=== PATIENT | female | born 1975 | race Caucasian/White ===

== ENCOUNTER → 2017-01-30 | Outpatient (CLI) | payer MEDICARE, OTHER ==
[~2017-01-30] VITALS: Ht 149.9 cm; Wt 88.9 kg
== END ==
LOC: OPSV 13:56
DX: G35 Multiple sclerosis (principal)
CPT/HCPCS: 96365; J2930; J7070

== ENCOUNTER → 2017-01-31 | Outpatient (CLI) | payer MEDICARE, OTHER ==
[~2017-01-31] VITALS: Ht 149.9 cm; Wt 88.9 kg
== END ==
LOC: OPSV 07:56
DX: G35 Multiple sclerosis (principal)
CPT/HCPCS: 96365; J2930; J7070

== ENCOUNTER → 2017-02-01 | Outpatient (CLI) | payer MEDICARE, OTHER ==
[~2017-02-01] VITALS: Ht 149.9 cm; Wt 88.9 kg
== END ==
LOC: OPSV 08:30
DX: G35 Multiple sclerosis (principal)
CPT/HCPCS: 96365; J2930; J7070

== ENCOUNTER 2021-04-30 20:42 | Emergency (ER) | payer MEDICARE, OTHER ==
[~2021-04-30 20:42] MED LIST: CYCLOBENZAPRINE10 MG PO
[2021-04-30 22:50] LABS: HEMOGLOBIN 15.4 gm/dl (12.3-15.3); RED BLOOD COUNT 5.41 M/UL (4.00-5.10); WHITE BLOOD COUNT 10.1 K/UL (4.5-11.0)
[2021-04-30 23:38] LABS: BUN/CREATININE RATIO 12 (0-10)
== END 2021-05-01 03:00 | disposition home or self-care (01) ==
LOC: ER1 20:42
PROVIDERS: Physician Assistant
DX: R06.02 Shortness of breath (principal); R07.89 Other chest pain; E11.9 Type 2 diabetes mellitus without complications; Z86.711 Personal history of pulmonary embolism; Z90.49 Acquired absence of other specified parts of digestive tract; Z88.1 Allergy status to other antibiotic agents; Z79.01 Long term (current) use of anticoagulants
CPT/HCPCS: 71045; 80053; 82550; 82553; 83874; 84484; 85025; 85379; 93005; 99285

== ENCOUNTER → 2021-06-24 | Outpatient (CLI) | payer MEDICARE, OTHER ==
[~2021-06-24] VITALS: Ht 149.9 cm; Wt 69.9 kg
== END ==
LOC: OPSV 13:00
DX: G35 Multiple sclerosis (principal)
CPT/HCPCS: 96365; J2930; J7030

== ENCOUNTER → 2021-06-26 | Outpatient (CLI) | payer MEDICARE, OTHER ==
[~2021-06-26] VITALS: Ht 149.9 cm; Wt 69.9 kg
== END ==
LOC: OPSV 13:44
DX: G35 Multiple sclerosis (principal)
CPT/HCPCS: 96365; J2930; J7030

== ENCOUNTER → 2021-06-27 | Outpatient (CLI) | payer MEDICARE, OTHER ==
[~2021-06-27] VITALS: Ht 149.9 cm; Wt 69.9 kg
[~2021-06-27] MED LIST changes: +AMANTADINE100 M1 PO; +ASPIRIN EC81 MG PO; +AUGMENTIN 875-1 EACH PO; +BACITRACIN TOP; +BACTRIM DS TAB1 EACH PO; +DALFAMPRIDINE E10 MG PO; +ELIQUIS 5 MG TAB5 MG PO; +FARXIGA10 MG PO; +FERROUS SULFAT325 MG PO; +LANTUS SOL100 UNIT/1 SQ; +LIPITOR TAB 2020 MG PO; +MULTI-VITAMIN1 EACH PO; +NUEDEXTA 20-101 EACH PO; +NYSTOP60 GM TOP; +OXYCODON-ACETA1 EACH PO; +REXULTI1 MG PO; +VITAMIN C500 M4 PO
== END ==
LOC: OPSV 06-25 14:00
DX: G35 Multiple sclerosis (principal)
CPT/HCPCS: 96365; J2930; J7070

== ENCOUNTER 2021-06-30 16:35 | Inpatient (IN) | payer MEDICARE, OTHER ==
[~2021-06-30] VITALS: Ht 149.9 cm; Wt 70.3 kg
[~2021-06-30 16:35] MED LIST changes: -AMANTADINE100 M1 PO; -ASPIRIN EC81 MG PO; -AUGMENTIN 875-1 EACH PO; -BACITRACIN TOP; -BACTRIM DS TAB1 EACH PO; -DALFAMPRIDINE E10 MG PO; -ELIQUIS 5 MG TAB5 MG PO; -FARXIGA10 MG PO; -FERROUS SULFAT325 MG PO; -LANTUS SOL100 UNIT/1 SQ; -LIPITOR TAB 2020 MG PO; -MULTI-VITAMIN1 EACH PO; -NUEDEXTA 20-101 EACH PO; -NYSTOP60 GM TOP; -OXYCODON-ACETA1 EACH PO; -REXULTI1 MG PO; -VITAMIN C500 M4 PO
[2021-06-30 17:02] LABS: HEMOGLOBIN 17.3 gm/dl (12.3-15.3); RED BLOOD COUNT 5.69 M/UL (4.00-5.10); WHITE BLOOD COUNT 14.1 K/UL (4.5-11.0)
[2021-06-30 17:35] LABS: BUN/CREATININE RATIO 28 (0-10)
[2021-06-30 21:08] LABS: BUN/CREATININE RATIO 26 (0-10)
[2021-06-30 23:52] LABS: BUN/CREATININE RATIO 23 (0-10)
[2021-06-30] MEDS ORDERED: AMANTADINE100 M1 PO (23:59)
[2021-06-30] MEDS ORDERED: LIPITOR TAB 2020 MG PO (23:59)
[2021-07-01] MEDS ORDERED: DALFAMPRIDINE E10 MG PO (00:02)
[2021-07-01] MEDS ORDERED: FARXIGA10 MG PO (00:03)
[2021-07-01] MEDS ORDERED: ELIQUIS 5 MG TAB5 MG PO (00:03)
[2021-07-01] MEDS ORDERED: LANTUS SOL100 UNIT/1 SQ (00:05)
[2021-07-01] MEDS ORDERED: NUEDEXTA 20-101 EACH PO (00:06)
[2021-07-01] MEDS ORDERED: VITAMIN C500 M4 PO (00:06)
[2021-07-01] MEDS ORDERED: REXULTI1 MG PO (00:06)
[2021-07-01] MEDS ORDERED: MULTI-VITAMIN1 EACH PO (00:07)
[2021-07-01] MEDS ORDERED: FERROUS SULFAT325 MG PO (00:07)
[2021-07-01 03:43] LABS: WHITE BLOOD COUNT 12.2 K/UL (4.5-11.0)
[2021-07-01 03:53] LABS: HEMOGLOBIN 14.6 gm/dl (12.3-15.3); RED BLOOD COUNT 4.91 M/UL (4.00-5.10)
[2021-07-01 04:16] LABS: BUN/CREATININE RATIO 19 (0-10)
[2021-07-01 07:55] LABS: BUN/CREATININE RATIO 19 (0-10)
[2021-07-02 07:37] LABS: HEMOGLOBIN 14.5 gm/dl (12.3-15.3); RED BLOOD COUNT 4.88 M/UL (4.00-5.10); WHITE BLOOD COUNT 6.6 K/UL (4.5-11.0)
[2021-07-02 08:00] LABS: BUN/CREATININE RATIO 19 (0-10)
[2021-07-03 06:38] LABS: HEMOGLOBIN 13.9 gm/dl (12.3-15.3); RED BLOOD COUNT 4.58 M/UL (4.00-5.10)
[2021-07-03 06:40] LABS: WHITE BLOOD COUNT 12.1 K/UL (4.5-11.0)
[2021-07-03 07:06] LABS: BUN/CREATININE RATIO 22 (0-10)
[2021-07-04 06:05] LABS: HEMOGLOBIN 12.8 gm/dl (12.3-15.3); RED BLOOD COUNT 4.27 M/UL (4.00-5.10)
[2021-07-04 06:10] LABS: CHLAMYDIA BY NAA Negative (Negative); GONOCOCCUS BY NAA Negative (Negative); TRICH VAG BY NAA Negative (Negative)
[2021-07-04 06:14] LABS: WHITE BLOOD COUNT 8.7 K/UL (4.5-11.0)
[2021-07-04 06:27] LABS: BUN/CREATININE RATIO 23 (0-10)
[2021-07-05 05:19] LABS: HEMOGLOBIN 12.5 gm/dl (12.3-15.3); RED BLOOD COUNT 4.26 M/UL (4.00-5.10); WHITE BLOOD COUNT 7.4 K/UL (4.5-11.0)
[2021-07-05 05:54] LABS: BUN/CREATININE RATIO 13 (0-10)
[2021-07-05] MEDS ORDERED: BACTRIM DS TAB1 EACH PO (13:03)
[2021-07-05] MEDS ORDERED: AUGMENTIN 875-1 EACH PO (13:03)
[2021-07-05] MEDS ORDERED: OXYCODON-ACETA1 EACH PO (13:05)
[2021-07-05] MEDS ORDERED: NYSTOP60 GM TOP (13:13)
[2021-07-05] MEDS ORDERED: BACITRACIN TOP (13:13)
[2021-07-05 18:16] LABS: BUN/CREATININE RATIO 11 (0-10)
[2021-07-06 05:37] LABS: RED BLOOD COUNT 4.05 M/UL (4.00-5.10); WHITE BLOOD COUNT 6.2 K/UL (4.5-11.0)
[2021-07-06 06:18] LABS: BUN/CREATININE RATIO 19 (0-10)
[2021-07-07 07:06] LABS: BUN/CREATININE RATIO 18 (0-10)
[2021-07-08 07:08] LABS: BUN/CREATININE RATIO 15 (0-10)
[2021-07-08] MEDS ORDERED: ASPIRIN EC81 MG PO (08:59)
== END 2021-07-08 11:41 | disposition home health service (06) | DRG 872 ==
LOC: ER1 16:35 → CDU 21:11 → PROG CARE 21:11 → MED SURG 4 21:11 → PROG CARE 22:55 → MED SURG 4 07-01 14:00
PROVIDERS: Emergency Medicine; Internal Medicine; ADMIT Internal Medicine
PROC: B24BZZZ Ultrasonography of Heart with Aorta (ICD-10-PCS; principal; 2021-07-07)
DX: A41.9 Sepsis, unspecified organism (principal); N12 Tubulo-interstitial nephritis, not specified as acute or chronic; E87.2 Acidosis; G35 Multiple sclerosis; E11.9 Type 2 diabetes mellitus without complications; R07.89 Other chest pain; E66.9 Obesity, unspecified; Z20.822 Contact with and (suspected) exposure to COVID-19; R19.7 Diarrhea, unspecified; E11.65 Type 2 diabetes mellitus with hyperglycemia; R94.31 Abnormal electrocardiogram [ECG] [EKG]; E55.9 Vitamin D deficiency, unspecified; E88.89 Other specified metabolic disorders; E86.1 Hypovolemia; Z68.30 Body mass index [BMI] 30.0-30.9, adult; Z79.4 Long term (current) use of insulin; Z90.49 Acquired absence of other specified parts of digestive tract; Z98.51 Tubal ligation status; Z83.3 Family history of diabetes mellitus; Z86.711 Personal history of pulmonary embolism; Z79.01 Long term (current) use of anticoagulants; Z88.1 Allergy status to other antibiotic agents; Z79.899 Other long term (current) drug therapy
CPT/HCPCS: ECHO; 36415; 71045; 80048; 80053; 80202; 80307; 81001; 82009; 82140; 82550; 82553; 82607; 82728; 82962; 83036; 83605; 83735; 83874; 84100; 84439; 84443; 84484; 84550; 85025; 85027; 86140; 87040; 87086; 87661; 93005; 93306; 96374; 96375; 97110-GP-CQ; 97116-GP-CQ; 97162; 97530; 97530-GP-CQ; 99285; J1885; J1956; J2270; J2405; J3370; J3475; J7030; J7040; J7050; J7070; Q9967; U0002

== ENCOUNTER 2021-07-24 22:59 | Emergency (ER) | payer MEDICARE, OTHER ==
[2021-07-25 00:38] LABS: HEMOGLOBIN 14.9 gm/dl (12.3-15.3); RED BLOOD COUNT 5.02 M/UL (4.00-5.10); WHITE BLOOD COUNT 8.3 K/UL (4.5-11.0)
[2021-07-25 01:05] LABS: BUN/CREATININE RATIO 21 (0-10)
== END 2021-07-25 05:20 | disposition home or self-care (01) ==
LOC: ER1 22:59
PROVIDERS: Student in an Organized Health Care Education/Training Program
DX: E11.65 Type 2 diabetes mellitus with hyperglycemia (principal); R07.89 Other chest pain; Z90.49 Acquired absence of other specified parts of digestive tract; Z88.8 Allergy status to other drugs, medicaments and biological substances
CPT/HCPCS: 71045; 80053; 82550; 82553; 83874; 84484; 85025; 85379; 93005; 96374; 96375; 99285; J1885

== ENCOUNTER → 2021-07-24 | Outpatient (CLI) | payer MEDICARE, OTHER ==
[~2021-07-24] MED LIST changes: +AMANTADINE100 M1 PO; +ASPIRIN EC81 MG PO; +AUGMENTIN 875-1 EACH PO; +BACITRACIN TOP; +BACTRIM DS TAB1 EACH PO; +DALFAMPRIDINE E10 MG PO; +ELIQUIS 5 MG TAB5 MG PO; +FARXIGA10 MG PO; +FERROUS SULFAT325 MG PO; +LANTUS SOL100 UNIT/1 SQ; +LIPITOR TAB 2020 MG PO; +MULTI-VITAMIN1 EACH PO; +NUEDEXTA 20-101 EACH PO; +NYSTOP60 GM TOP; +OXYCODON-ACETA1 EACH PO; +REXULTI1 MG PO; +VITAMIN C500 M4 PO
== END ==
LOC: EMI 13:37
DX: G35 Multiple sclerosis (principal); R90.89 Other abnormal findings on diagnostic imaging of central nervous system
CPT/HCPCS: 70553; 72156; A9577

== ENCOUNTER 2022-03-25 21:54 | Emergency (ER) | payer MEDICARE, OTHER ==
[2022-03-25 22:46] LABS: HEMOGLOBIN 10.2 gm/dl (12.3-15.3); RED BLOOD COUNT 4.06 M/UL (4.00-5.10); WHITE BLOOD COUNT 26.5 K/UL (4.5-11.0)
== END 2022-03-26 01:08 | disposition expired ==
LOC: ER1 21:54
PROVIDERS: Emergency Medicine
DX: I46.9 Cardiac arrest, cause unspecified (principal); E11.9 Type 2 diabetes mellitus without complications
CPT/HCPCS: 36600; 80053; 82550; 82553; 82803; 83605; 83735; 84100; 84484; 85025; 87040; 94002; 99285; J7030